=== PATIENT | female | born 1955 | race African-American/Black ===

== ENCOUNTER 2022-12-29 07:58 | Emergency (ER) | payer OTHER, MEDICAID ==
[~2022-12-29] VITALS: Ht 165.1 cm; Wt 64.0 kg
[2022-12-29] MEDS ORDERED: HYDRALAZINE 20MG/ML VIAL IV ONE ×2 (08:15→10:15)
[2022-12-29 08:34] LABS: EOSINOPHILS % 0.2 % (0.0-5.0); HEMATOCRIT. 36.6 % (36.0-48.0); HEMOGLOBIN. 12.3 g/dL (12.0-16.0); LYMPHOCYTES % 7.7 % (20.0-50.0); MEAN CORPUSCULAR HEMOGLOBIN 33.2 pg (28.0-32.0); MEAN CORPUSCULAR HGB CONC 33.6 g/dL (31.0-37.0); MEAN CORPUSCULAR VOLUME 98.7 fL (81.0-99.0); MEAN PLATELET VOLUME 8.8 fl (7.4-10.4); MONOCYTES % 2.5 % (2.0-8.0); NEUTROPHILS % 88.6 % (40.0-76.0); PLATELET 279 x1000/uL (130-400); RED BLOOD CELL COUNT 3.71 mill/uL (4.2-5.4); RED CELL DISTRIBUTION WIDTH 16.7 % (11.6-14.6); WHITE BLOOD COUNT 10.5 x1000/uL (4.5-11.0)
[2022-12-29 08:41] LABS: CHLORIDE 108 mEq/L (98-107); INDEX HEMOLYSI 1 (1-3); INDEX ICTERIC 1 (1-4); INDEX LIPEMIC 1 (1-3); POTASSIUM 5.9 mEq/L (3.5-5.1); SODIUM 137 mEq/L (136-145)
[2022-12-29] MEDS ORDERED: METOCLOPRAMIDE HCL 10MG/2ML VIAL IV ONE (09:00)
[2022-12-29 09:02] LABS: ALANINE AMINOTRANSFERASE 22 IU/L (13-61); ALBUMIN 3.3 g/dL (3.4-5.0); ASPARTATE AMINOTRANSFERASE 20 IU/L (15-37); BILIRUBIN TOTAL 0.3 mg/dL (0.1-1.0); CALCIUM 8.2 mg/dL (8.5-10.1); CARBON DIOXIDE 24 mEq/L (21-32); GLUCOSE 363 mg/dL (70-105); NT PRO B-TYPE NATRIURETIC PEP 61361 pg/mL (5-125); PROTEIN TOTAL 7.1 g/dL (6.0-8.3); UREA NITROGEN BLOOD 64 mg/dL (7-21)
[2022-12-29] MEDS ORDERED: CALCIUM GLUCONATE 1,000 MG in DEXT 5% WATER 100 ML IV ONE (09:15)
[2022-12-29] MEDS ORDERED: SODIUM BICARBONATE 8.4% 1 MEQ/ML 50ML SYR IV ONE (09:15)
[2022-12-29] MEDS ORDERED: DEXTROSE 50% WATER 50ML SYRINGE IV ONE (09:15)
[2022-12-29] MEDS ORDERED: INSULIN REGULAR (HUMULIN R) 300UNITS/3ML VIAL IV ONE (09:15)
[2022-12-29 09:16] LABS: CREATININE 7.1 mg/dL (0.6-1.3); TROPONIN I HIGH SENSITIVITY 279 ng/L (<54)
[2022-12-29] MEDS ORDERED: CALCIUM GLUCONATE 1GM PREMIX 50 ML IV NR (09:45)
[2022-12-29] MEDS ORDERED: ALBUTEROL (0.083%) 2.5MG/3ML NEB HHN ONE (10:00)
[2022-12-29 10:21] LABS: POTASSIUM 5.3 mEq/L (3.5-5.1)
[2022-12-29 10:26] LABS: CALCIUM 8.2 mg/dL (8.5-10.1)
[2022-12-29 10:31] LABS: CREATININE 6.9 mg/dL (0.6-1.3)
[2022-12-29 11:38] VITALS: PULSE 108; RESP 15; O2SAT 97
[2022-12-29 13:31] VITALS: BP 164/70; PULSE 102; RESP 21; TEMP 98.5
== END 2022-12-29 13:44 | disposition short-term general hospital (02) ==
LOC: ER 09:00
DX: I12.9 Hypertensive chronic kidney disease with stage 1 through stage 4 chronic kidney disease, or unspecified chronic kidney disease (principal); N18.9 Chronic kidney disease, unspecified; E87.6 Hypokalemia; E87.70 Fluid overload, unspecified; Z20.822 Contact with and (suspected) exposure to COVID-19
CPT/HCPCS: 80053; 80048; 83880; 85025; 84484; 36415; 71045; 94640; 93005; 96374; 96375; 96376; 99291; 87426; J0610; J0360; J1815; J2765; J3490; C9803; J7060